=== PATIENT | female | born 1995 | race Caucasian/White ===

== ENCOUNTER 2021-01-03 14:19 | Outpatient (CLI) | payer BC ==
[2021-01-04 00:46] LABS: SARS-CoV-2 PCR by NAA Not Detected (NotDetected)
== END 2021-01-03 14:20 | disposition home or self-care (01) ==
LOC: CSHLAB 14:19
PROVIDERS: ATTEND Family Medicine
DX: R06.02 Shortness of breath (principal); Z20.822 Contact with and (suspected) exposure to COVID-19
CPT/HCPCS: 87635; U0003; U0005